=== PATIENT | female | born 1965 | race Caucasian/White ===

== ENCOUNTER → 2016-11-20 16:39 | Outpatient (CLI) | payer MEDICAID ==
[2016-04-07 12:50] VITALS: BMI 39.7
[~2016-11-20 16:39] MED LIST: ACTOS30 MG PO; ADDERALL 30 MG30 MG PO; ALBUTEROL2.5 MG/0.5 UPD; AMBIEN10 MG PO; CARAFATE1 G PO; DALIRESP500 MCG PO; DUONEB 2.5-0.5 M3 ML UPD; FLORANEX / LACT1 TAB PO; FUROSEMIDE20 MG PO; GLIMEPIRIDE1 MG PO; GLUCOPHAGE500 MG PO; KLONOPIN0.5 MG PO; LEVEMIR100 U/M1 SC; LEVEMIR100 U/M1 SQ; LOMOTIL TABLET1 TAB PO; LYRICA200 MG PO; MEDROL DOSE PACK4 MG PO; MYSOLINE 50 MG50 MG PO; NEURONTIN600 MG PO; NEXIUM40 MG PO; NORCO 10/325 TA1 TA1 PO; NOVOLOG100 U/M1 SQ; OMEPRAZOLE20 M1 PO; PEPCID20 MG PO; PHENERGAN25 M1 PO; PREDNISONE20 MG; PRILOSEC20 MG PO; PRINIVIL20 MG PO; PROAIR HFA8.5 GM INH; PROZAC40 MG PO; SINGULAIR10 MG PO; SOMA350 MG PO; SPIRIVA18 MCG INH; SYMBICORT 80-10.2 GM INH; TOPAMAX25 MG PO; TRIGLIDE160 MG PO; VICTOZA0.6 MG/0.1 SQ; VYVANSE40 MG PO; VYVANSE50 MG PO; XANAX2 MG PO; XIGDUO XR 10 M1 EAC1 PO; ZITHROMAX250 MG PO; ZYPREXA15 MG PO
== END | disposition home or self-care (01) ==
LOC: D.MAMMO 10:45
DX: Z12.31 Encounter for screening mammogram for malignant neoplasm of breast (principal)

== ENCOUNTER → 2018-07-17 08:54 | Outpatient (CLI) | payer MEDICAID ==
[2016-04-07 12:50] VITALS: BMI 39.7
== END | disposition home or self-care (01) ==
LOC: D.MAMMO 08:54
DX: Z12.31 Encounter for screening mammogram for malignant neoplasm of breast (principal)

== ENCOUNTER 2018-12-02 06:14 | Day surgery (SDC) | payer MEDICAID ==
[~2018-12-02] VITALS: Ht 157.5 cm; Wt 81.8 kg
[2018-12-02 06:49] LABS: CALC OSMOLALITY 280 mosm/kg (275-300); CALCIUM 8.7 mg/dL (8.5-10.1); CARBON DIOXIDE 26.6 mmol/L (21.0-32.0); CHLORIDE - SERUM 106 mmol/L (98-107); CREATININE - SERUM 0.7 mg/dL (0.6-1.3); POTASSIUM - SERUM 3.8 mmol/L (3.5-5.1); SODIUM 141 mmol/L (136-145); UREA NITROGEN 7 mg/dL (7-18); eGFR NON AFRICAN AMERICAN > 90 mL/min (90-120)
[2018-12-02 06:58] LABS: BASOPHILS 0.1 % (0-2); EOSINOPHILS 0.7 % (0-7); HEMATOCRIT 41.6 % (36.0-48.0); HEMOGLOBIN 14.4 g/dL (12-16); IMMATURE GRANULOCYTES 0.3 % (0-5); LYMPHOCYTES 24.1 % (15-50); MCH 32.4 pg (26.0-34.0); MCHC 34.6 g/dL (31.0-37.0); MCV 93.5 fL (80.0-100.0); MEAN PLATELET VOLUME 10.3 fL (7.4-10.4); MONOCYTES 5.7 % (2-11); NEUTROPHILS 69.1 % (40-80); RBC 4.45 10x6/uL (4.00-5.40); RDW 13.7 % (11.5-14.5); WBC 10.4 10x3/uL (4.8-10.8)
[2018-12-02 06:59] LABS: GLUCOSE 137 mg/dL (74-106)
[2018-12-02 07:00] LABS: PLATELET COUNT 225 10x3/uL (130-400)
[2018-12-02] MEDS ORDERED: ZANAFLEX4 MG PO (07:21)
[2018-12-02] MEDS ORDERED: VICTOZA0.6 MG/0.1 SQ (07:21)
[2018-12-02 07:25] VITALS: BP 119/74; Ht 157.5 cm; Wt 81.8 kg
--- NOTE | 2018-12-04 13:50 | OP ---
PATIENT NAME: DAYAMI SWIFT MEDICAL RECORD: [id number] :69 LOCATION:[facility] ADMISSION DATE: SURGEON: EMMY SMITH DO DATE OF OPERATION: 12/02/2018 PROCEDURE: Colonoscopy with polypectomy. INDICATIONS FOR PROCEDURE: Generalized abdominal pain and constipation. SCOPE: Olympus video pediatric colonoscope. MEDICATIONS: Propofol 620 mg IV per anesthesia. WITHDRAWAL TIME: 15 minutes. ESTIMATED BLOOD LOSS: Minimal. COMPLICATIONS: None. FINDINGS: Informed consent was given. The patient was made comfortable with the above medication. After reaching an adequate level of sedation by slow IV push, the patient was placed on her left side. A digital rectal examination was performed and was normal. The endoscope was then advanced under direct visualization through the rectum to the cecum, confirmed by the presence of the appendiceal orifice and ileocecal valve. The endoscope was slowly withdrawn and mucosa was carefully examined. The prep quality was fair. There were 3 benign-appearing sessile polyps located in the sigmoid colon on today's examination. They ranged in size from 2-4 mm in diameter. They were all removed using hot forceps. Retroflexion was performed in the rectum with visualization of grade I internal hemorrhoids without bleeding. The endoscope was withdrawn from the patient. The patient tolerated the procedure well and there were no complications. IMPRESSION: 1. Three sigmoid polyps as described above, removed using hot forceps. 2. Grade I internal hemorrhoids without bleeding. PLAN AND RECOMMENDATIONS: 1. Discharge home when recovery parameters are met. 2. Follow up biopsy specimen results. 3. Continue high fiber diet. 4. Continue current medications. 5. Trial of Linzess 145 mcg daily. This medication may need titrated up or down based on response. 6. Okay to continue MiraLax as needed on top of Linzess. 7. Follow up in GI clinic in 3-4 weeks for review of symptoms and titration of medications as indicated. TRANSINT:[id number] Voice Confirmation ID: [id number] DOCUMENT ID: [id number] OPERATIVE REPORT [id number] DAYAMI SWIFT EMMY SMITH DO at 1350 CC: [id number] DICTATION DATE: 12/02/18 0854 GEOPHYSICAL SUPPORT SPECIALIST: 12/02/18 0911 [facility] 12/02/18 [facility] [address] [place] [address]
== END 2018-12-02 10:02 | disposition home or self-care (01) ==
LOC: D.OPS 06:14
PROVIDERS: Anesthesiology
DX: K63.5 Polyp of colon (principal); K64.0 First degree hemorrhoids; J44.9 Chronic obstructive pulmonary disease, unspecified; G47.30 Sleep apnea, unspecified; I11.0 Hypertensive heart disease with heart failure; I50.9 Heart failure, unspecified; K21.9 Gastro-esophageal reflux disease without esophagitis; F41.9 Anxiety disorder, unspecified; E11.9 Type 2 diabetes mellitus without complications; G89.29 Other chronic pain; Z88.1 Allergy status to other antibiotic agents; Z88.8 Allergy status to other drugs, medicaments and biological substances; Z79.4 Long term (current) use of insulin; Z79.899 Other long term (current) drug therapy; Z87.891 Personal history of nicotine dependence; Z01.812 Encounter for preprocedural laboratory examination

== ENCOUNTER 2019-08-22 12:31 | Outpatient (CLI) | payer MEDICAID ==
[~2019-08-22] VITALS: Ht 152.4 cm; Wt 80.0 kg
--- NOTE | ~2019-08-22 | HEMODYNAMI ---
PATIENT:DAYAMI SWIFT MEDICAL RECORD: [id number] : 69 LOCATION:[facility] ADMISSION DATE: 08/22/19 Generatedon:08/22/201915:55 Patient name: DAYAMI SWIFT Patient #: [id number] SSN: : [id number] Date of study: 08/22/2019 Page: Of Hemodynamic Procedure Report Patient Data Patient Demographics Procedure consent was obtained First Name: DAYAMI Gender: Female Last Name: JAMISON : 1965 Middle Initial: JUANA Age: 53 year(s) Patient #: [id number] Race: Unknown SSN: [id number] Additional ID: [id number] Contact details Address: [address] [place] [address] State: [place] [facility] [place] code: [address] Admission Admission Data Admission Date: 08/22/2019 Admission Time: 12:31 Arrival Date: 08/22/2019 Arrival Time: 0:00 Admit Source: Emergency Insurance Payor: Medicaid department [facility] #: [id number] Height (in.): 59.84 BSA: 1.77 (m2) Height (cm.): 152 BMI: 34.63 (kg/m2) Weight (lbs.): 176.37 Weight (kg.): 80 Lab Results Lab Result Date: 08/22/2019 Lab Result Time: 0:00 Biochemistry Name Units Result Min Max BUN mg/dl 17 --(---*)-- 7 18 Creatinine mg/dl 0.9 --(-*--)-- 0.6 1.3 CBC Name Units Result Min Max Hemoglobin g/dl 14.8 --(-*--)-- 13.5 17.5 Procedure Procedure Types Cath Procedure Diagnostic Procedure LHC LHC w/Coronaries Procedure Description Procedure Date Procedure Date: 08/22/2019 Procedure Start Time: 15:48 Procedure End Time: 15:53 Procedure Staff Name Function Rylie Flaherty RT Scrub Tariq Alba MD Performing Physician Dayami Gonzalez RT Monitor Carlee Lares RN Nurse Procedure Data Cath Procedure Fluoroscopy Diagnostic fluoroscopy Total fluoroscopy Time: 0.8 time: 0.8 min min Diagnostic fluoroscopy Total fluoroscopy dose: 302 dose: 302 mGy mGy Contrast Material Contrast Material Type Amount (ml) Isovue 300 48 Entry Location Entry Primary Successful Side Size Upsize Upsize Entry Closure Succes sful Closure Location (Fr) 1 (Fr) 2 (Fr) Remarks Device Remarks Femoral Right 5 Fr Exoseal artery Estimated blood loss: 5 ml Diagnostic catheters Device Type Used For End Catheter Placement MULTIPACK Pigtail 5 Fr Procedure catheter MULTIPACK JL 4.0 5Fr Procedure catheter MULTIPACK 3DRC 5Fr Procedure catheter Procedure Complications No complications Procedure Medications Medication Administration Route Dosage 0.9% NaCl I.V. 100 ml/hr Oxygen etCO2 Nasal cannula 2 l/min Lidocaine 2% added to field 20 Heparin Flush Bag added to field 2 bags (1000units/500ml NS) Versed I.V. 2 mg Fentanyl I.V. 100 mcg Hemodynamics Rest BSA: 1.77 (m2) HGB: 14.8 (g/dl) O2 Consumption: Estimated: 167.48 (ml/min) O2 Co nsumption indexed: Estimated:94.62 (ml/min/m) Heart Rate: 63 (bpm) Snapshots Pre Cath Intra NCS Post Cath Vital Signs Time Heart Resp SPO2 etCO2 NIBP (mmHg) Rhythm Pain Sedation Rate (ipm) (%) (mmHg) Status Level (bpm) 15:37:02 67 12 98 45 138/82(120) NSR 0 (11) 10(A) , No pain 15:41:18 67 10 98 38 138/77(111) NSR 0 (11) 10(A) , No pain 15:45:32 67 19 99 39.5 144/82(119) NSR 0 (11) 10(A) , No pain 15:49:48 73 10 98 39.5 136/83(107) NSR 0 (11) 10(A) , No pain 15:54:00 73 18 98 39.5 143/83(118) NSR 0 (11) 10(A) , No pain Medications Time Medication Route Dose Verified Delivered Reason Notes Eff ectiveness by by 15:36:10 0.9% NaCl I.V. 100 Tariq Bejarano used for ml/hr Parth Lares application assistant 15:36:17 Oxygen etCO2 2 Tariq Carlee used for Nasal l/min Parth Lares procedure cannula RN 15:36:22 Lidocaine 2% added 20ml Tariq Tariq for local to vial Parth Alba MD anesthetic field 15:36:27 Heparin Flush added 2 Tariq Tariq used for Bag to bags Parth Alba MD procedure (1000units/500ml field NS) 15:45:25 Versed I.V. 2 mg Tariq Carlee for Parth Lares sedation RN 15:45:30 Fentanyl I.V. 100 Tariq Carlee for mcg Parth Lares sedation gate agent Log Time Note 15:11:51 Patient Height : 59.84 inches 15:11:55 Patient Weight : 176.37 lbs 15:11:58 Admit Source: Emergency department 15:12:02 Arrival Date: 08/22/2019 12:00:00 AM 15:12:20 Insurance Payor : Medicaid 15:12:54 Lab Result : Hemoglobin 14.8 g/dl 15:12:54 Lab Result : Creatinine 0.9 mg/dl 15:12:54 Lab Result : BUN 17 mg/dl 15:13:20 Diagnostic Cath Status : Urgent 15:13:48 Procedure Status Urgent Heart Cath (IP). 15:13:50 Dayami Gonzalez RT(R) sent for patient. Start room use. 15:13:58 Time tracking: Regular hours (M-F 7:00 - 5:00) 15:14:03 Plan of Care:Hemodynamics will remain stable., Cardiac rhythm will remain stable., Comfort level will be maintained., Respiratory function will remain adequate., Patient/ family verbilizes understanding of procedure., Procedure tolerated without complication., Recovers from procedure without complications.. 15:14:14 Patient received from ED to CCL 2 Alert and oriented. Tansferred to table in Supine position. 15:15:16 2) 60-89 Mildly reduced kidney function, and other findings (as for stage 1) point to kidney disease. 15:36:03 Vital chart was started 15:36:10 0.9% NaCl 100 ml/hr I.V. was administered by Carlee Lares RN; used for procedure; Verbal order read back and verified. 15:36:17 Oxygen 2 l/min etCO2 Nasal cannula was administered by Carlee Lares RN; used for procedure; Verbal order read back and verified. 15:36:22 Lidocaine 2% 20ml vial added to field was administered by Tariq Alba MD; for local anesthetic; Verbal order read back and verified. 15:36:27 Heparin Flush Bag (1000units/500ml NS) 2 bags added to field was administered by Tariq Alba MD; used for procedure; Verbal order read back and verified. 15:36:34 Signed procedure consent form obtained from patient. 15:36:35 Warm blankets applied, and edin hugger turned on for patient comfort. 15:36:35 Correct patient and procedure confirmed by team. 15:36:36 Baseline sample Acquired. 15:36:36 ECG and BP/O2 sat monitors applied to patient. 15:36:42 Rhythm: sinus rhythm 15:36:43 Full Disclosure recording started 15:36:48 H&P Date Dictated: 08/22/2019 ER History on chart., New H&P dictated by physician.. 15:36:50 Pre-procedure instructions explained to patient. 15:36:50 Pre-op teaching completed and patient verbalized understanding. 15:36:51 Family in waiting room. 15:36:53 Patient NPO since Midnight. 15:36:56 Is the patient allergic to Iodine/contrast media? No. 15:36:57 Was the patient premedicated? No 15:37:01 Is patient on blood thinner?No 15:37:02 Patient diabetic? Yes. 15:37:06 If diabetic: On Metformin? No 15:37:08 Previous problem with sedation/anesthesia? No ? 15:37:10 Snore? Yes 15:37:11 Sleep apnea? Yes 15:37:12 Deviated septum? No 15:37:13 Opens mouth fully? Yes 15:37:13 Sticks out tongue? Yes 15:37:20 Airway obstruction? Yes copd asthma 15:37:23 Dentures? No ? 15:37:26 Pre procedure: right dorsailis pedis pulse 2+ Normal; easily identifiable; not easily obliterated 15:37:28 Pre procedure: left dorsailis pedis pulse 2+ Normal; easily identifiable; not easily obliterated 15:37:30 Patient pain scale 0/10 ?. 15:37:40 IV patent on arrival in right wrist with 0.9% NaCl at KVO. 15:37:42 Lab results completed and on chart. 15:40:23 Risk of Mortality: .5 15:40:26 Risk of blood transfusion: 2.4 15:40:29 Risk of JOSÉ: 8.9 15:40:34 Right groin area was prepped with chlora-prep and draped in sterile fashion 15:40:35 Alarms reviewed by R. N. 15:40:36 Sharps counted by scrub and verified by R.N. 15:40:37 Physician paged 15:41:29 Maximum allowable contrast dose (3.7 X eGFR X 0.75)194 ml. 15:44:19 Physician arrived 15:44:19 --------ALL STOP TIME OUT------ 15:44:20 Final Timeout: patient, procedure, and site verified with staff and physician. All members of the team are in agreement. 15:44:22 Right groin site verified by team. 15:44:27 Fire Safety Assessment: A--An alcohol-based skin anteseptic being used preoperatively., C--Open oxygen or nitrous oxide is being used., D--An ESU, laser, or fiber-optic light is being used. 15:44:35 Physical assessment completed. ASA score P 2 - A patient with mild systemic disease as per Carlee Lares RN. 15:44:39 Sedation plan: IV Moderate Sedation Medication:Versed, Fentanyl 15:44:49 Use device set Femoral Dx 15:44:50 ACIST Syringe (28457) opened to sterile field. 15:44:50 Bag Decanter () opened to sterile field. 15:44:51 Medline Cath Pack ([id number]) opened to sterile field. 15:44:52 ACIST Hand Control (05549) opened to sterile field. 15:44:53 ACIST Manifold (46937) opened to sterile field. 15:44:53 DIAGNOSTIC Multipack 5Fr catheter set (LR4010) opened to sterile field. 15:44:54 Tegaderm 4 x 4 (1626W) opened to sterile field. 15:44:56 SHEATH 5FR Monarch (PXS257) opened to sterile field. 15:44:57 EMERALD Guide Wire (591-107) opened to sterile field. 15:45:25 Versed 2 mg I.V. was administered by Carlee Lares RN; for sedation; Verbal order read back and verified. 15:45:30 Fentanyl 100 mcg I.V. was administered by Carlee Lares RN; for sedation; Verbal order read back and verified. 15:47:15 Procedure started. 15:48:04 A MULTIPACK Pigtail 5 Fr catheter was advanced over the wire and used for Procedure. 15:48:10 Local anesthetic to right femoral artery with Lidocaine 2% by Tariq Alba MD.INITIAL ACCESS ONLY 15:48:26 A 5 Fr sheath was inserted into the Right Femoral artery 15:48:30 j wire advanced. 15:48:34 LV angiography performed. 15:48:37 LV gram done using ROCK 15:48:45 EF : 60 % 15:48:56 Catheter removed. 15:49:26 A MULTIPACK JL 4.0 5Fr catheter was advanced over the wire and used for Procedure. 15:49:29 LCA angiography performed. 15:49:41 Catheter removed. 15:49:46 ACCDominant side:Left 15:50:02 A MULTIPACK 3DRC 5Fr catheter was advanced over the wire and used for Procedure. 15:50:06 RCA angiography performed. 15:50:30 Catheter removed. 15:50:32 EXOSEAL 5Fr (EX500) opened to sterile field. 15:51:23 Sheath removed intact; hemostasis achieved with Exoseal to the Right Femoral artery. 15:51:26 Procedure ended.(Physican Out) 15:51:37 Fluoroscopy time 00.80 minutes. 15:51:49 Fluoroscopy dose: 302 mGy 15:51:49 Flurop Dose total: 302 15:51:54 Dose Area Product 50995 mGy/cm. 15:52:01 Contrast amount:Isovue 300 48ml. 15:52:03 Maximum allowable dose exceeded? No. 15:52:04 Sharps counted by scrub and verified by R.N. 15:52:05 Insertion/operative site no bleeding no hematoma. 15:52:09 Post-op/insertion site Right Femoral artery dressed using a 4 x 4 and Tegaderm. 15:52:14 Post Procedure Pulses reassessed and unchanged 15:52:17 Post-procedure physical assessment completed. ASA score P 2 - A patient with mild systemic disease as per Tariq Alba MD. 15:52:20 Post procedure rhythm: unchanged. 15:52:23 Estimated blood loss: 5 ml 15:52:24 Post procedure instruction explained to patient.Patient verbalizes understanding. 15:52:46 Procedure and supply charges have been captured, reviewed, submitted and are correct. 15:53:21 Procedure Complication : No complications 15:53:24 Vital chart was stopped 15:53:38 [facility] Findings: mild to moderate CAD (<70%) 15:53:39 Operative report dictated upon procedure completion. 15:53:40 See physician's report for complete and final results. 15:53:43 Report given to Pre/Post Procedure Room. 15:53:48 Patient transfered to Pre/Post Procedure Room with Stretcher. 15:53:51 Procedure ended. 15:53:51 Full Disclosure recording stopped 15:53:55 End room use (Document Last) 15:54:19 End room use (Document Last) 15:55:07 End room use (Document Last) Device Usage Item Name Manufacture Quantity Catalog Hospital Part Current Minimal L ot# / Number Charge Number Stock Stock Serial# Code ACIST Acist 1 [id number] [id number] 706902 213392 20 Syringe Medical (96292) Systems Inc Bag Microtek 1 2001S 741591 40624 773100 5 Decanter Medical Inc. () Medline Medline 1 [id number] 640426 89003 991501 5 Cath Pack ([id number]) ACIST Hand Acist 1 10069 562368 496583 244115 5 Control Medical (99050) Systems Inc ACIST Acist 1 79577 905534 453262 003421 5 Manifold Medical (69111) Systems Inc DIAGNOSTIC Cardinal 1 [id number] 847373 37309 720815 30 Multipack Health 5Fr catheter set (KY7337) Tegaderm 4 3M 1 1626W 650510 402809 455478 5 x 4 (1626W) SHEATH 5FR Terumo 1 SHB563 780584 594194 392639 5 Monarch (WCH481) EMERALD Cardinal 1 502455 853805 040092 170659 5 Guide Wire Health (312-827) MULTIPACK Cardinal 1 315439 5 Pigtail 5 Health Fr catheter MULTIPACK Cardinal 1 856893 5 JL 4.0 5Fr Health catheter MULTIPACK Cardinal 1 597149 5 3DRC 5Fr Health catheter EXOSEAL 5Fr Cardinal 1 EX500 804917 715397 119973 10 (EX500) Health Signature Audit [place] Stage Time Signature Unsigned Intra-Procedure 08/22/2019 Dayami Gonzalez 3:54:19 PM RT(R) Intra-Procedure 08/22/2019 Carlee Lares 3:55:07 PM RN Intra-Procedure 08/22/2019 Tariq Alba 3:55:31 PM Signatures Performing Physician : Signature : Tariq Alba MD Date : Time : Monitor : Dayami Gonzalez Signature : RT Date : Time : Nurse : Carlee Lares RN Signature : Date : Time : [address] [address]
[~2019-08-22 12:31] MED LIST changes: +ZANAFLEX4 MG PO
[2019-08-22 12:34] VITALS: Ht 152.4 cm; Wt 80.0 kg
[2019-08-22] MEDS ORDERED: LATUDA40 MG PO (12:37)
[2019-08-22] MEDS ORDERED: EFFEXOR100 MG PO (12:37)
[2019-08-22] MEDS ORDERED: TOVIAZ4 MG PO (12:38)
[2019-08-22] MEDS ORDERED: VITAMIN D250000 UNIT PO (12:38)
[2019-08-22] MEDS ORDERED: FOLIC ACID1 MG PO (12:38)
[2019-08-22] MEDS ORDERED: AMITIZA8 MCG PO (12:39)
[2019-08-22] MEDS ORDERED: ADIPEX-P37.5 MG PO (12:40)
[2019-08-22] MEDS ORDERED: INDERAL 40 MG T40 MG PO (12:40)
[2019-08-22] MEDS ORDERED: ROXICODONE15 MG PO (12:41)
[2019-08-22 13:00] LABS: BASOPHILS 0.2 % (0-2); EOSINOPHILS 0.9 % (0-7); HEMATOCRIT 43.2 % (36.0-48.0); HEMOGLOBIN 14.8 g/dL (12-16); IMMATURE GRANULOCYTES 0.3 % (0-5); LYMPHOCYTES 27.7 % (15-50); MCH 32.6 pg (26.0-34.0); MCHC 34.3 g/dL (31.0-37.0); MCV 95.2 fL (80.0-100.0); MEAN PLATELET VOLUME 10.3 fL (7.4-10.4); NEUTROPHILS 62.9 % (40-80); PLATELET COUNT 255 10x3/uL (130-400); RBC 4.54 10x6/uL (4.00-5.40); RDW 12.3 % (11.5-14.5); WBC 9.3 10x3/uL (4.8-10.8)
[2019-08-22 13:02] LABS: CALC OSMOLALITY 278 mosm/kg (275-300); CALCIUM 8.9 mg/dL (8.5-10.1); CARBON DIOXIDE 29.3 mmol/L (21.0-32.0); CHLORIDE - SERUM 102 mmol/L (98-107); CREATININE - SERUM 0.9 mg/dL (0.6-1.3); POTASSIUM - SERUM 3.3 mmol/L (3.5-5.1); SODIUM 139 mmol/L (136-145); UREA NITROGEN 17 mg/dL (7-18); eGFR NON AFRICAN AMERICAN 70 mL/min (90-120)
[2019-08-22 13:03] LABS: GLUCOSE 78 mg/dL (74-106)
[2019-08-22 13:07] LABS: INR 1.06 (0.85-1.17); PROTIME 13.3 SECONDS (11.6-15.0)
[2019-08-22 13:17] LABS: ALBUMIN 3.5 g/dL (3.4-5.0); ALKALINE PHOSPHATASE 96 U/L (46-116); ALT (SGPT) 26 U/L (10-68); BILIRUBIN - TOTAL 0.35 mg/dL (0.2-1.3); CKMB 0.8 U/L (0.0-3.6); CREATINE KINASE 119 UL (21-215); PROTEIN - SERUM 7.3 g/dL (6.4-8.2); TROPONIN-I < 0.017 ng/mL (0.000-0.060)
[2019-08-22 15:28] VITALS: BP 117/63
--- NOTE | 2019-08-22 15:56 | HP ---
PATIENT: DAYAMI SWIFT MEDICAL RECORD: [id number] ACCOUNT: [id number] LOCATION:[facility] : 69 ADMISSION DATE: 08/22/19 PCP: REAGAN JARQUIN MD HISTORY AND PHYSICAL EXAMINATION DIAGNOSES: 1. Unstable angina. 2. Coronary artery disease. 3. Smoking. 4. Hypertension. 5. Hyperlipidemia. 6. Insulin-dependent diabetes. 7. Family history of coronary artery disease. 8. Abnormal ECG. HISTORY OF PRESENT ILLNESS: Mrs. Swift began having chest discomfort today. She presented to an urgent care clinic where she had T-wave inversions as well as ST depression anterolaterally. She was given sublingual nitro, sent to [facility] where she was initially pain free. Her EKG had normalized. She is now having a recurrence of the pain at approximately 3/10 level. She has a history of minimal coronary artery disease found on a cardiac catheterization in 2015. No intervention was undertaken. She is on lisinopril, propranolol. Heart rates in the 60s, systolic blood pressure in the 110 range, and she is on maximal medical therapy for her heart rate and blood pressure. She continues to have the pain at rest with class IV anginal symptomatology. PHYSICAL EXAMINATION: CONSTITUTIONAL/GENERAL APPEARANCE: Well nourished, well developed, appears stated age. EYES: Lids and conjunctivae noninjected. No discharge. No pallor. ENT: Lips within normal limit. No cyanosis. No pallor. NECK: Carotid arteries, bilateral normal upstroke. No bruits. No thrills. No jugular venous pressure or distention. CERVICAL LYMPH NODES: Nontender. Nonenlarged. THYROID: Not enlarged. No nodules. CARDIOVASCULAR: Precordial exam, nondisplaced. No heaves or pericardial thrills. Rate and rhythm, regular. Heart sounds, normal S1, normal S2. No S3, no gallop, no rub. Systolic murmur, not heard. Diastolic murmur, not heard. RESPIRATORY: Respiratory effort, unlabored. Normal curvature. No thoracic deformity. No chest wall tenderness. Percussion, resonant. Auscultation, clear. No wheezes, no rales, no rhonchi. ABDOMEN: Soft, nondistended, nontender. No abdominal pain, no vomiting and normal appetite. MUSCULOSKELETAL: No joint tenderness, normal gait, normal tone. SKIN: Warm and dry. REVIEW OF SYSTEMS: The patient reports easy bruising but reports no swollen glands. The patient reports no fever, no night sweats, no significant weight gain, no significant weight loss. No significant exercise tolerance. The patient reports no dry eyes, no irritation, no vision change. Patient reports no difficulty hearing and no ear pain. Patient reports no frequent nose bleeds or nose and sinus problems. Patient reports on arm pain on exertion. No shortness of breath while lying down. No history of heart murmur. Patient reports no cough, no wheezing or coughing up blood. Patient reports no abdominal pain, no vomiting. Normal appetite. No diarrhea and not vomiting HISTORY AND PHYSICAL [id number] DAYAMI SWIFT blood. No nausea and no constipation. Patient reports no incontinence. No difficulty urinating. No hematuria. No increased frequency. Patient reports no muscle aches. No weakness, no arthralgias, no back pain. No swelling of the extremities. Patient reports no abnormal mole, no jaundice, no rashes. Reports no loss of consciousness. No weakness and no numbness. No seizures, dizziness, or headaches. The patient reports no depression, no sleep disturbance, feeling safe in a relationship and no alcohol abuse. Patient reports on fatigue. Reports no runny nose or sinus pressure. No itching, no hives, and no frequent sneezing. FAMILY HISTORY: Positive for premature coronary artery disease. SOCIAL HISTORY: Smoker. Lives in the [place] area. [place] in the [place] area. Denies drugs or ETOH. OVERALL IMPRESSION: Unstable angina class IV with EKG changes in a patient who has diabetes, hypertension, hyperlipidemia. Hence, there is a high likelihood she has got hemodynamically significant coronary artery disease and proceeding to acute coronary syndrome or cardiac event. We will proceed with coronary angiography. Further care depends upon findings of the angiography. TRANSINT:[id number] Voice Confirmation ID: [id number] DOCUMENT ID: [id number] FRANCI VALDES MD at 1556 CC: [id number] DICTATION DATE: 08/22/19 1440 CHROMOSOMAL DISORDERS COUNSELOR: 08/22/19 6637 [facility] [address] [place] [address]
--- NOTE | 2019-08-22 16:05 | NUR ---
PT ARRIVED BY STRETCHER. PLACED ON MONITOR. ASSESSMENT COMLETED. VSS. CALL LIGHT WITHIN REACH. FAMILY AT BEDSIDE. DR. VALDES ROUNDED AND SPOKE WITH PT'S FAMILY.
--- NOTE | 2019-08-22 16:20 | NUR ---
RIGHT GROIN DRESSING C/D/I. NO S/S OF HEMATOMA NOTED. CALL LIGHT WITHIN REACH. FAMILY AT BEDSIDE. NO NEEDS AT THIS TIME.
--- NOTE | 2019-08-22 16:53 | NUR ---
RIGHT GROIN DRESSING C/D/I. NO S/S OF HEMATOMA NOTED. CALL LIGHT WITHIN REACH. PT DENIES NAUSEA/PAIN AT THIS TIME. VSS. PT SET UP WITH SANDWICH TRAY AND DRINK.
--- NOTE | 2019-08-22 17:38 | NUR ---
RIGHT GROIN DRESSING C/D/I. NO S/S OF HEMATOMA NOTED. PIV D/C'D WITH CATH TIP INTACT. TOLERATED WELL. PT INSTRUCTED TO GET UP AND DRESSED AT THIS TIME. FAMILY AT BEDSIDE TO ASSIST.
--- NOTE | 2019-08-22 17:48 | NUR ---
PT AMBULATED TO RESTROOM. VOIDED WITHOUT DIFFICULTY. RIGHT GROIN DRESSING C/D/I. NO S/S OF HEMATOMA NOTED.
--- NOTE | 2019-08-22 17:50 | NUR ---
DISCUSSED DISCHARGE INSTRUCTIONS WITH PT AND PT'S FAMILY. THEY VOICED UNDERSTANDING.
--- NOTE | 2019-08-22 17:55 | NUR ---
PT TAKEN OUT TO VEHICLE BY WHEELCHAIR. NO S/S OF DISTRESS NOTED. ALL BELONGINGS AND PAPERWORK IN HAND.
--- NOTE | 2019-09-02 11:40 | OP ---
PATIENT NAME: DAYAMI SWIFT MEDICAL RECORD: [id number] :69 LOCATION:[facility] ADMISSION DATE: SURGEON: FRANCI VALDES MD DATE OF OPERATION: 08/22/2019 PROCEDURES: 1. Left heart catheterization. 2. Selective coronary angiography. 3. Left ventriculogram. INDICATIONS: Angina, abnormal ECG, hypertension, hyperlipidemia, insulin-dependent diabetes, and coronary artery disease. DESCRIPTION OF THE PROCEDURE: Informed consent obtained after detailed description of risks, benefits as well as alternative therapies, the patient elected to proceed with angiogram and heart catheterization. The right femoral area was prepped and draped in normal sterile fashion. The right femoral artery was cannulated via modified Seldinger technique with placement of 5-Kyrgyz sheath. All catheters exchanged through this sheath. FINDINGS: The left ventriculogram was performed in a standard 30-degree ROCK view, reveals good cardiac wall motion throughout all segments. Overall ejection fraction is estimated 60%. SELECTIVE CORONARY ANGIOGRAPHY: Left main, left anterior descending, left circumflex, right coronary artery have all minimal irregularities, no flow-limiting stenosis. OVERALL IMPRESSION: Minimal coronary artery disease is present. No flow-limiting stenosis. Chest pain is noncardiac in etiology. TRANSINT:[id number] Voice Confirmation ID: [id number] DOCUMENT ID: [id number] FRANCI VALDES MD at 1140 CC: [id number] DICTATION DATE: 08/22/19 1557 FILENET P8 DEVELOPER: 08/22/19 2333 DEP CLI 08/22/19 [address] [place] [address]
== END 2019-08-22 17:55 | disposition home or self-care (01) ==
LOC: D.ER 12:31 → D.CATH 12:31 → EDSTATUS 18:05
PROVIDERS: Family Medicine; ATTEND Internal Medicine Interventional Cardiology
DX: R07.9 Chest pain, unspecified (principal); R94.30 Abnormal result of cardiovascular function study, unspecified; I25.10 Atherosclerotic heart disease of native coronary artery without angina pectoris; I10 Essential (primary) hypertension; E11.9 Type 2 diabetes mellitus without complications

== ENCOUNTER → 2021-01-10 09:46 | Outpatient (CLI) | payer MEDICAID ==
[2019-08-22 12:34] VITALS: BMI 34.4
[~2021-01-10 09:46] MED LIST changes: +ADIPEX-P37.5 MG PO; +AMITIZA8 MCG PO; +EFFEXOR100 MG PO; +FOLIC ACID1 MG PO; +INDERAL 40 MG T40 MG PO; +LATUDA40 MG PO; +ROXICODONE15 MG PO; +TOVIAZ4 MG PO; +VITAMIN D250000 UNIT PO
[2021-01-10 10:18] LABS: CALCIUM 8.7 mg/dL (8.5-10.1); CARBON DIOXIDE 27.8 mmol/L (21.0-32.0); CREATININE - SERUM 1.1 mg/dL (0.6-1.3); POTASSIUM - SERUM 3.8 mmol/L (3.5-5.1)
[2021-01-10 10:20] LABS: BASOPHILS 0.1 % (0-2); EOSINOPHILS 1.1 % (0-7); HEMATOCRIT 42.5 % (36.0-48.0); HEMOGLOBIN 13.8 g/dL (12-16); IMMATURE GRANULOCYTES 0.2 % (0-5); LYMPHOCYTE ABS# 1.76 10x3/uL (1.18-3.74); LYMPHOCYTES 21.9 % (15-50); MCH 30.3 pg (26.0-34.0); MCHC 32.5 g/dL (31.0-37.0); MCV 93.4 fL (80.0-100.0); MEAN PLATELET VOLUME 10.2 fL (7.4-10.4); MONOCYTES 7.2 % (2-11); NEUTROPHIL ABS# 5.58 10x3/uL (1.56-6.13); NEUTROPHILS 69.5 % (40-80); PLATELET COUNT 241 10x3/uL (130-400); RBC 4.55 10x6/uL (4.00-5.40); RDW 12.7 % (11.5-14.5)
== END | disposition home or self-care (01) ==
LOC: D.LAB 09:46
PROVIDERS: ATTEND Pain Medicine Interventional Pain Medicine
DX: Z01.818 Encounter for other preprocedural examination (principal)

== ENCOUNTER → 2021-04-18 09:35 | Outpatient (CLI) | payer MEDICAID ==
[2019-08-22 12:34] VITALS: BMI 34.4
== END | disposition home or self-care (01) ==
LOC: D.RT 09:30
PROVIDERS: ATTEND Family Medicine
DX: J32.9 Chronic sinusitis, unspecified (principal)

== ENCOUNTER 2021-05-02 14:35 | Outpatient (CLI) | payer MEDICAID ==
[2019-08-22 12:34] VITALS: BMI 34.4
== END 2021-05-02 23:59 | disposition home or self-care (01) ==
LOC: D.MAMMO 14:35
PROVIDERS: ATTEND Family Medicine
DX: Z12.31 Encounter for screening mammogram for malignant neoplasm of breast (principal)